=== PATIENT | male | born 1985 | race Caucasian/White ===

== ENCOUNTER 2020-06-25 10:51 | Emergency (ER) | payer BC ==
[2020-06-25] MEDS ORDERED: Sodium Chloride 0.9% 10 ML Syringe FLUSH PRN (11:18)
--- NOTE | 2020-06-25 13:31 | EDM.PDOC ---
ED HPI GENERAL MEDICAL PROBLEM - General Chief Complaint: Respiratory Problem Stated Complaint: [facility] Time Seen by Provider: 06/25/20 11:10 Source of Information: Reports: Patient History Limitations: Reports: No Limitations - History of Present Illness INITIAL COMMENTS - FREE TEXT/NARRATIVE: Patient is a 34-year-old male presenting to the emergency department with complaints of increased shortness of breath, and a feeling of numbness and tingling throughout his entire body. Patient is COVID positive. He states his symptoms initially began on 11 June with loss of taste and smell. He has had some days where he felt fatigued between now and then, however his shortness of breath just developed over the last few days. He received his positive COVID results yesterday as well. He was seen in the COVID clinic 3 days ago and had a chest x-ray completed. He was started on Augmentin and given an albuterol inhaler. His COVID test was also completed that time. He states that today he felt significantly short of breath. His , who is an ER nurse, called EMS. Oxygen saturation per EMS was 84% on room air. On arrival to ER, patient was on 15 L via nonrebreather satting 100%. He denies any significant respiratory or cardiac history. Denies any chest pain, abdominal pain, nausea, vomiting, diarrhea, fever, or chills. - Related Data Allergies Allergy/AdvReac Type Severity Reaction Status Date / Time No Known Allergies Allergy Verified 06/25/20 11:11 Home Meds: Home Meds Albuterol Sulfate [Albuterol Sulfate Hfa] 2 puff INH Q3HR PRN 06/25/20 [History] Amoxicillin/Clavulanate K [Augmentin 875-125 MG] 1 tab PO BID 06/25/20 [History] Past Medical History - Infectious Disease History Infectious Disease History: Reports: Chicken Pox, Novel Coronavirus Social & Family History - Family History Family Medical History: Noncontributory - Tobacco Use Smoking Status *Q: Former Smoker Used Tobacco, but Quit: Yes Month/Year Tobacco Last Used: 2007 - Caffeine Use Caffeine Use: Reports: Coffee, Other Other Caffeine Use: [employer] - Recreational Drug Use Recreational Drug Use: No ED ROS GENERAL - Review of Systems Review Of Systems: See Below Constitutional: Reports: Weakness, Fatigue. Denies: Fever, Chills HEENT: Reports: No Symptoms Respiratory: Reports: Shortness of Breath. Denies: Wheezing, Pleuritic Chest Pain, Cough Cardiovascular: Reports: No Symptoms. Denies: Chest Pain, Syncope Endocrine: Reports: No Symptoms GI/Abdominal: Reports: No Symptoms. Denies: Abdominal Pain, Diarrhea, Nausea, Vomiting : Reports: No Symptoms Musculoskeletal: Reports: No Symptoms Skin: Reports: No Symptoms Neurological: Reports: Dizziness, Numbness (throughout body), Tingling (throughout the body) Psychiatric: Reports: No Symptoms Hematologic/Lymphatic: Reports: No Symptoms Immunologic: Reports: No Symptoms ED EXAM, GENERAL - Physical Exam Exam: See Below General Appearance: Alert, WD/WN, No Apparent Distress Respiratory/Chest: No Respiratory Distress, Lungs Clear, Normal Breath Sounds, No Accessory Muscle Use, Chest Non-Tender Cardiovascular: Normal Peripheral Pulses, Regular Rate, Rhythm, No Edema, No Gallop, No JVD, No Murmur, No Rub Extremities: Normal Inspection, Normal Range of Motion, Non-Tender, Normal Capillary Refill, No Pedal Edema Neurological: Alert, Oriented, CN II-XII Intact, Normal Cognition, Normal Gait, Normal Reflexes, No Motor/Sensory Deficits Psychiatric: Normal Affect, Normal Mood Skin Exam: Warm, Dry, Intact, Normal Color, No Rash EKG INTERPRETATION EKG Date: 06/25/20 Time: 11:42 Rhythm: NSR Rate (Beats/Min): 58 P-Wave: Present QRS: Normal ST-T: Normal QT: Normal Course - Vital Signs Last Recorded V/S: Last Vital Signs Temp 97.5 F 06/25/20 10:59 Pulse 60 06/25/20 10:59 Resp 16 06/25/20 10:59 BP 125/75 06/25/20 10:59 Pulse Ox 100 06/25/20 10:59 - Orders/Labs/Meds Orders: Active Orders 24 hr Category Date Time Status EKG Documentation Completion [RC] STAT Care 06/25/20 11:16 Active Peripheral IV Care [RC] . DIRECTED Care 06/25/20 11:18 Active Chest 1V Frontal [CR] Stat Exams 06/25/20 11:16 Once CULTURE BLOOD [BC] Stat Lab 06/25/20 11:47 Received CULTURE BLOOD [BC] Stat Lab 06/25/20 12:05 Received PROCALCITONIN [REF] Stat Lab 06/25/20 11:47 Received Sodium Chloride 0.9% [Saline Flush] Med 06/25/20 11:18 Active 10 ml FLUSH ASDIRECTED PRN Blood Culture x2 Reflex Set [OM.PC] Stat Ot 06/25/20 11:16 Ordered Peripheral IV Insertion Adult [OM.PC] Stat Ot 06/25/20 11:18 Ordered Medication Orders Sodium Chloride (Saline Flush) 10 ml FLUSH ASDIRECTED PRN PRN Reason: Keep Vein Open Labs: Laboratory Tests 06/25/20 06/25/20 06/25/20 Range/Units 12:05 12:05 12:05 WBC 7.09 (4.23-9.07) K/mm3 RBC 5.95 (4.63-6.08) M/mm3 Hgb 16.6 (13.7-17.5) gm/dl Hct 48.1 (40.1-51.0) % MCV 80.8 (79.0-92.2) fl MCH 27.9 (25.7-32.2) pg MCHC 34.5 (32.2-35.5) g/dl RDW Std Deviation 38.6 (35.1-43.9) fL Plt Count 250 (163-337) K/mm3 MPV 9.2 L (9.4-12.3) fl Neutrophils % (Manual) 84 H (40-60) % Band Neutrophils % 0 (0-10) % Lymphocytes % (Manual) 10 L (20-40) % Atypical Lymphs % 0 % Monocytes % (Manual) 5 (2-10) % Eosinophils % (Manual) 1 (0.8-7.0) % Basophils % (Manual) 0 L (0.2-1.2) Platelet Estimate Adequate RBC Morph Comment Normal PT 11.5 (9.7-11.7) SECONDS INR 1.08 APTT 31 (22-31) SECONDS D-Dimer, Quantitative 0.23 (0.19-0.50) mg/L Sodium (136-145) mEq/L Potassium (3.5-5.1) mEq/L Chloride (98-107) mEq/L Carbon Dioxide (21-32) mEq/L Anion Gap (5-15) BUN (7-18) mg/dL Creatinine (0.7-1.3) mg/dL Est Cr Clr Drug Dosing mL/min Estimated GFR (MDRD) (>60) mL/min BUN/Creatinine Ratio (14-18) Glucose (74-106) mg/dL Lactic Acid (0.4-2.0) mmol/L Calcium (8.5-10.1) mg/dL Magnesium (1.8-2.4) mg/dl Ferritin (26-388) ng/ml Total Bilirubin (0.2-1.0) mg/dL AST (15-37) U/L ALT (16-63) U/L Alkaline Phosphatase (46-116) U/L Lactate Dehydrogenase (85-227) U/L Creatine Kinase (39-308) U/L Troponin I (0.00-0.056) ng/mL C-Reactive Protein 1.1 H* (<1.0) mg/dL NT-Pro-B Natriuret Pep (0-125) pg/mL Total Protein (6.4-8.2) g/dl Albumin (3.4-5.0) g/dl Globulin gm/dL Albumin/Globulin Ratio (1-2) 06/25/20 06/25/20 06/25/20 Range/Units 12:05 12:05 12:05 WBC (4.23-9.07) K/mm3 RBC (4.63-6.08) M/mm3 Hgb (13.7-17.5) gm/dl Hct (40.1-51.0) % MCV (79.0-92.2) fl MCH (25.7-32.2) pg MCHC (32.2-35.5) g/dl RDW Std Deviation (35.1-43.9) fL Plt Count (163-337) K/mm3 MPV (9.4-12.3) fl Neutrophils % (Manual) (40-60) % Band Neutrophils % (0-10) % Lymphocytes % (Manual) (20-40) % Atypical Lymphs % % Monocytes % (Manual) (2-10) % Eosinophils % (Manual) (0.8-7.0) % Basophils % (Manual) (0.2-1.2) Platelet Estimate RBC Morph Comment PT (9.7-11.7) SECONDS INR APTT (22-31) SECONDS D-Dimer, Quantitative (0.19-0.50) mg/L Sodium 140 (136-145) mEq/L Potassium 3.7 (3.5-5.1) mEq/L Chloride 101 (98-107) mEq/L Carbon Dioxide 28 (21-32) mEq/L Anion Gap 14.7 (5-15) BUN 13 (7-18) mg/dL Creatinine 1.2 (0.7-1.3) mg/dL Est Cr Clr Drug Dosing 93.25 mL/min Estimated GFR (MDRD) > 60 (>60) mL/min BUN/Creatinine Ratio 10.8 L (14-18) Glucose 99 (74-106) mg/dL Lactic Acid (0.4-2.0) mmol/L Calcium 9.2 (8.5-10.1) mg/dL Magnesium 2.0 (1.8-2.4) mg/dl Ferritin 954 H (26-388) ng/ml Total Bilirubin 0.6 (0.2-1.0) mg/dL AST 84 H (15-37) U/L ALT 174 H (16-63) U/L Alkaline Phosphatase 61 (46-116) U/L Lactate Dehydrogenase 249 H (85-227) U/L Creatine Kinase 293 (39-308) U/L Troponin I < 0.017 (0.00-0.056) ng/mL C-Reactive Protein (<1.0) mg/dL NT-Pro-B Natriuret Pep 83 (0-125) pg/mL Total Protein 8.0 (6.4-8.2) g/dl Albumin 4.4 (3.4-5.0) g/dl Globulin 3.6 gm/dL Albumin/Globulin Ratio 1.2 (1-2) 06/25/20 Range/Units 12:05 WBC (4.23-9.07) K/mm3 RBC (4.63-6.08) M/mm3 Hgb (13.7-17.5) gm/dl Hct (40.1-51.0) % MCV (79.0-92.2) fl MCH (25.7-32.2) pg MCHC (32.2-35.5) g/dl RDW Std Deviation (35.1-43.9) fL Plt Count (163-337) K/mm3 MPV (9.4-12.3) fl Neutrophils % (Manual) (40-60) % Band Neutrophils % (0-10) % Lymphocytes % (Manual) (20-40) % Atypical Lymphs % % Monocytes % (Manual) (2-10) % Eosinophils % (Manual) (0.8-7.0) % Basophils % (Manual) (0.2-1.2) Platelet Estimate RBC Morph Comment PT (9.7-11.7) SECONDS INR APTT (22-31) SECONDS D-Dimer, Quantitative (0.19-0.50) mg/L Sodium (136-145) mEq/L Potassium (3.5-5.1) mEq/L Chloride (98-107) mEq/L Carbon Dioxide (21-32) mEq/L Anion Gap (5-15) BUN (7-18) mg/dL Creatinine (0.7-1.3) mg/dL Est Cr Clr Drug Dosing mL/min Estimated GFR (MDRD) (>60) mL/min BUN/Creatinine Ratio (14-18) Glucose (74-106) mg/dL Lactic Acid 2.0 (0.4-2.0) mmol/L Calcium (8.5-10.1) mg/dL Magnesium (1.8-2.4) mg/dl Ferritin (26-388) ng/ml Total Bilirubin (0.2-1.0) mg/dL AST (15-37) U/L ALT (16-63) U/L Alkaline Phosphatase (46-116) U/L Lactate Dehydrogenase (85-227) U/L Creatine Kinase (39-308) U/L Troponin I (0.00-0.056) ng/mL C-Reactive Protein (<1.0) mg/dL NT-Pro-B Natriuret Pep (0-125) pg/mL Total Protein (6.4-8.2) g/dl Albumin (3.4-5.0) g/dl Globulin gm/dL Albumin/Globulin Ratio (1-2) Meds: Medications Generic Name Dose Route Start Last Admin Trade Name Freq PRN Reason Stop Dose Admin Sodium Chloride 10 ml 06/25/20 11:18 Saline Flush FLUSH ASDIRECTED PRN Keep Vein Open - Re-Assessments/Exams Free Text/Narrative Re-Assessment/Exam: Patient is a 34-year-old male presenting to the emergency department with complaints of shortness of breath and generalized numbness and tingling throughout his body. He is COVID positive. He presented to the ER on 15 L via nonrebreather satting 100%. Nursing staff had gradually weaned him down to 4 L via nasal cannula cannula still satting 100%. While I was in the room examining him, the supplemental O2 was turned off to establish his baseline oxygenation. Patient was able to maintain 98 to 100% on room air. On exam, his lung sounds are clear. I have ordered a chest x-ray, standard COVID labs, and EKG. 06/25/20 14:42 Hematology was significant for an elevated at 954, AST 84, ALT 174, LDH 249, CRP 1.1. D-dimer and troponin were negative. WBCs are normal. Chest x-ray was normal. EKG showed normal sinus rhythm at 58. Patient has been maintaining oxygen saturation of 98 to 100% on room air. My suspicion is that the patient had a panic attack after feeling short of breath causing him to hyperventilate which is why he felt numbness and tingling throughout his body. I did call and speak with the patient's who is an ER nurse here. Recommend that she purchase a home pulse oximeter so that he may monitor his home oxygenation which may somewhat ease his anxiety. She did state that EMS was having a difficult time getting a reading on their pulse ox. After a time of no reading coming up, 84 popped up momentarily and then disappeared. I question the accuracy of this reading as patient has been maintaining oxygenation very well in the emergency department. Had a long conversation with the patient on what to watch for and return precautions. All of his questions were answered. We will discharge him home with instructions return to ER for any worsening symptoms. Discharge instructions as documented. Departure - Departure Time of Disposition: 14:44 Disposition: Home, Self-Care 01 Condition: Good Clinical Impression: COVID-19 - Discharge Information *PRESCRIPTION DRUG MONITORING PROGRAM REVIEWED*: No *COPY OF PRESCRIPTION DRUG MONITORING REPORT IN PATIENT HEAVEN: No Instructions: COVID-19, COVID-19 Frequently Asked Questions Referrals: PCP,None [Ordering Only Provider] - Forms: ED Department Discharge Additional Instructions: You were seen in the emergency department today for shortness of breath, weakness, and numbness and tingling throughout your body. Your work-up in the ER included lab work, a chest x-ray, and an EKG of your heart. Your chest x-ray was found to be clear. There is no pneumonia. Your EKG was normal. While in the emergency department, you were able to maintain your oxygen saturation at 98 to 100% on room air. The remainder of your vital signs were also normal. Recommend that you go home and rest. You may continue to use your albuterol inhaler if you feel that it is helping, however it may be of limited benefit. I would also recommend that you purchase a home pulse oximeter so that you may monitor your oxygen saturations at home. If you find that you are maintaining an oxygen saturation of less than 92%, or you experience any other worsening symptoms of concern, please do not hesitate to return to the emergency department. Sepsis Event Note (ED) - Evaluation Sepsis Screening Result: No Definite Risk - Focused Exam Vital Signs: Vital Signs Temp Pulse Resp BP Pulse Ox 06/25/20 10:59 97.5 F 60 16 125/75 100 - My Orders Last 24 Hours: My Active Orders 06/25/20 11:16 EKG Documentation Completion [RC] STAT Chest 1V Frontal [CR] Stat Blood Culture x2 Reflex Set [OM.PC] Stat 06/25/20 11:18 Peripheral IV Care [RC] . DIRECTED Sodium Chloride 0.9% [Saline Flush] 10 ml FLUSH ASDIRECTED PRN Peripheral IV Insertion Adult [OM.PC] Stat 06/25/20 11:47 CULTURE BLOOD [BC] Stat PROCALCITONIN [REF] Stat 06/25/20 12:05 CULTURE BLOOD [BC] Stat - Assessment/Plan Last 24 Hours: My Active Orders 06/25/20 11:16 EKG Documentation Completion [RC] STAT Chest 1V Frontal [CR] Stat Blood Culture x2 Reflex Set [OM.PC] Stat 06/25/20 11:18 Peripheral IV Care [RC] . DIRECTED Sodium Chloride 0.9% [Saline Flush] 10 ml FLUSH ASDIRECTED PRN Peripheral IV Insertion Adult [OM.PC] Stat 06/25/20 11:47 CULTURE BLOOD [BC] Stat PROCALCITONIN [REF] Stat 06/25/20 12:05 CULTURE BLOOD [BC] Stat
--- NOTE | 2020-06-26 11:12 | CR ---
Chest: Portable view of the chest was obtained. Comparison: No prior chest imaging is available. Heart size and mediastinum are normal. Lungs are clear with no acute parenchymal change. Old healed fracture deformity is noted within the left clavicle. No acute osseous finding is seen. Impression: 1. Nothing acute is appreciated on portable chest x-ray. Diagnostic code #2 This report was dictated in MDT
== END 2020-06-25 16:22 | disposition home or self-care (01) ==
LOC: JD.ED 10:51
DX: U07.1 COVID-19 (principal); Z87.891 Personal history of nicotine dependence
CPT/HCPCS: 36415; 71045; 71045-26; 80053; 82550; 82728; 83605; 83615; 83735; 83880; 84145; 84484; 85007; 85027; 85379; 85610; 85730; 86140; 87040; 93005; 93010; 99283; 99285-25

== ENCOUNTER 2020-07-14 20:29 | Emergency (ER) | payer BC ==
--- NOTE | 2020-07-14 21:44 | EDM.PDOC ---
ED HPI GENERAL MEDICAL PROBLEM - General Chief Complaint: Cardiovascular Problem Stated Complaint: CHEST TIGHTNESS/HEART RATE GOES UP Time Seen by Provider: 07/14/20 21:08 Source of Information: Reports: Patient, RN Notes Reviewed History Limitations: Reports: No Limitations - History of Present Illness INITIAL COMMENTS - FREE TEXT/NARRATIVE: Patient is a 34-year-old male who presents to the ED for the evaluation of his chest tightness and fluctuations in heart rate. Patient notes he was COVID positive last month, but was cleared to go back to work. he does note that thr oughout his illness, he had ongoing shortness of breath, and feelings of chest tightness, and some "palpitations" where he would feel a thump feeling in his chest and feel flushed right afterwards. He would almost characterize this as a fluttering in his chest. He does have a pulse ox at home, and his is an RN, and they do note that at times his heart rate did dip down into the high 40s and low 50s on the pulse ox with a good pleth. Patient's primary care provider is Dru Pierre, he did have an appoint with him this last Friday, and everything was going well at that time. He returned to work yesterday, and he began to feel the feelings in his chest again. 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 He does complain again of some chest tightness, and feeling of just words hard to catch a deep breath. He states he just does not get the relief from his sigh breaths that he normally does. Patient denies any family history of early cardiac disease. He is not had any fevers or chills, cough/increasing shortness of breath, no nausea no vomiting no diarrhea. - Related Data Allergies Allergy/AdvReac Type Severity Reaction Status Date / Time No Known Allergies Allergy Verified 06/25/20 11:11 Home Meds: Home Meds Albuterol Sulfate [Albuterol Sulfate Hfa] 2 puff INH Q3HR PRN 06/25/20 [History] Amoxicillin/Clavulanate K [Augmentin 875-125 MG] 1 tab PO BID 06/25/20 [History] Past Medical History - Infectious Disease History Infectious Disease History: Reports: Chicken Pox, Novel Coronavirus Social & Family History - Family History Family Medical History: Noncontributory - Caffeine Use Caffeine Use: Reports: Coffee, Other Other Caffeine Use: [employer] ED ROS GENERAL - Review of Systems Review Of Systems: Comprehensive ROS is negative, except as noted in HPI. ED EXAM, GENERAL - Physical Exam Exam: See Below Exam Limited By: No Limitations General Appearance: Alert, WD/WN, No Apparent Distress Respiratory/Chest: No Respiratory Distress, Lungs Clear, Normal Breath Sounds, No Accessory Muscle Use, Chest Non-Tender Cardiovascular: Normal Peripheral Pulses, Regular Rate, Rhythm, No Murmur Peripheral Pulses: 2+: Radial (L), Radial (R) Extremities: Normal Inspection, Normal Capillary Refill Neurological: Alert, Oriented, Normal Cognition, No Motor/Sensory Deficits Psychiatric: Normal Affect, Normal Mood Skin Exam: Warm, Dry, Intact, Normal Color, No Rash Course - Orders/Labs/Meds Orders: Active Orders 24 hr Category Date Time Status Holter Monitor 48 Hours [RC] .PRN Care 07/14/20 22:53 Ordered Labs: Laboratory Tests 07/14/20 07/14/20 Range/Units 22:00 22:00 D-Dimer, Quantitative 0.86 H (0.19-0.50) mg/L Sodium 140 (136-145) mEq/L Potassium 3.4 L (3.5-5.1) mEq/L Chloride 104 (98-107) mEq/L Carbon Dioxide 27 (21-32) mEq/L Anion Gap 12.4 (5-15) BUN 12 (7-18) mg/dL Creatinine 1.1 (0.7-1.3) mg/dL Est Cr Clr Drug Dosing TNP Estimated GFR (MDRD) > 60 (>60) mL/min BUN/Creatinine Ratio 10.9 L (14-18) Glucose 150 H (74-106) mg/dL Calcium 8.7 (8.5-10.1) mg/dL Magnesium 2.4 (1.8-2.4) mg/dl Total Bilirubin 0.4 (0.2-1.0) mg/dL AST 32 (15-37) U/L ALT 75 H (16-63) U/L Alkaline Phosphatase 52 (46-116) U/L Total Protein 7.0 (6.4-8.2) g/dl Albumin 3.9 (3.4-5.0) g/dl Globulin 3.1 gm/dL Albumin/Globulin Ratio 1.3 (1-2) TSH 3rd Generation 2.445 (0.358-3.74) uIU/mL - Re-Assessments/Exams Free Text/Narrative Re-Assessment/Exam: 07/14/20 21:42 Patient presents to the ED for the evaluation of his ongoing respiratory/cardiac issues. Have ordered repeat labs to include electrolytes, TSH level along with a d-dimer. I do believe these very well could be palpitations due to anxiety nonetheless if labs are unremarkable, plan is to send the patient home with a 48-hour Holter monitor. 07/14/20 23:00 Laboratory evaluation demonstrates a mildly elevated d-dimer at 0.86, metabolic panel is essentially unremarkable, potassium mildly low at 3.4. Patient states that he was watching his heart rate on the monitor in the ED ER, and he describes what sounds like a PVC on the monitor, I did explain to him that this is a normal abnormal finding, he seemed to be reassured by this. Nonetheless we will send him home with a Holter monitor and have him follow-up with Dr. Pierre at this time. Regarding the elevated d-dimer, his O2 sats are 100% on room air, and his heart rate is 60 to 70 bpm, and I very much do not suspect a pulmonary embolus at this time. Again he was COVID positive less than 1 month ago. Departure - Departure Time of Disposition: 23:01 Disposition: Home, Self-Care 01 Condition: Good Clinical Impression: Palpitations with regular cardiac rhythm Instructions: Palpitations, [id number] Referrals: Dru Stephens MD [Primary Care Provider] - Forms: ED Department Discharge Additional Instructions: You were evaluated in the ER today for your chest tightness/heart palpitations. Laboratory evaluation was done, demonstrates no focal metabolic abnormalities. Your d-dimer was mildly elevated at 0.86, but you did recently just suffer from COVID-19, and fluctuations in the d-dimer can happen due to the disease process. There is a very low suspicion for pulmonary embolus at this visit. You were sent home with a Holter monitor, to monitor your heart rate for the next 48 hours, you will need to return this to our facility after the 48 hours is done, and schedule an appoint with Dr. Pierre, roughly 1 week after you have returned the device, for follow-up and further management. Please continue to try to use De-stressing/coping mechanisms at home, as there can be a possibility of some of this being anxiety. If your Holter monitor demonstrates no focal abnormalities, please talk with your provider about managing your anxiety / stress. Please return to the ER at any time if symptoms change or worsen. - My Orders Last 24 Hours: My Active Orders 07/14/20 22:53 Holter Monitor 48 Hours [RC] .PRN - Assessment/Plan Last 24 Hours: My Active Orders 07/14/20 22:53 Holter Monitor 48 Hours [RC] .PRN
== END 2020-07-14 23:49 | disposition home or self-care (01) ==
LOC: JD.ED 20:29
DX: R00.2 Palpitations (principal); R79.1 Abnormal coagulation profile; Z86.19 Personal history of other infectious and parasitic diseases
CPT/HCPCS: 36415; 80053; 83735; 84443; 85379; 93225; 93226; 99283; 99284

== ENCOUNTER 2020-09-18 10:55 | Emergency (ER) | payer BC ==
--- NOTE | 2020-09-18 12:15 | EDM.PDOC ---
ED HPI GENERAL MEDICAL PROBLEM - General Chief Complaint: General Stated Complaint: SOB /SHAKEY Time Seen by Provider: 09/18/20 11:48 Source of Information: Reports: Patient, Old Records, RN Notes Reviewed History Limitations: Reports: No Limitations - History of Present Illness INITIAL COMMENTS - FREE TEXT/NARRATIVE: Patient is a 35-year-old male who presents to the ED for evaluation of his ongoing chest pressure, shakiness and shortness of breath. He had a COVID-19 in May 2020. He notes that he believes he still having lingering side effects. He still does not have his entire sense of taste and smell, he feels like he is just a zombie of a human. He feels like he has no emotion. He was evaluated in this ER for chest pressure a month and a half or so ago, when was believed to have some anxiety issues causing this. He was placed on metoprolol and hydroxyzine, and everything is been going okay but today he has noticed some increased general symptoms, that are periodic today to include shakiness, shortness of breath, and a anxious type feeling. He notes no increased stress at home or at work. He states these just come up out of the blue. He feels like something is just not right. He is also complaining of quite a bit of frontal sinus pressure and he notes this has been present since he has had COVID-19 as well. His primary care is Dr. Dru Pierre, and he does have an appointment with him on September 28. Patient denies any other sick-like symptoms, fever/chills, cough/shortness of breath, nausea/vomiting/diarrhea. - Related Data Allergies Allergy/AdvReac Type Severity Reaction Status Date / Time No Known Allergies Allergy Verified 09/18/20 11:13 Home Meds: Home Meds Escitalopram [Lexapro] 20 mg PO DAILY #30 tab 09/18/20 [Rx] Past Medical History Respiratory History: Reports: Other (See Below) Other Respiratory History: COVID Psychiatric History: Reports: Anxiety - Infectious Disease History Infectious Disease History: Reports: Chicken Pox, Novel Coronavirus (May 2020) Social & Family History - Family History Family Medical History: No Pertinent Family History - Caffeine Use Caffeine Use: Reports: Coffee, Soda Other Caffeine Use: [place] [employer] - Recreational Drug Use Recreational Drug Use: No ED ROS GENERAL - Review of Systems Review Of Systems: Comprehensive ROS is negative, except as noted in HPI. ED EXAM, GENERAL - Physical Exam Exam: See Below Exam Limited By: No Limitations General Appearance: Alert, WD/WN, No Apparent Distress Eye Exam: Bilateral Eye: EOMI, Normal Inspection, PERRL Ears: Normal External Exam, Normal Canal, Hearing Grossly Normal, Normal TMs Throat/Mouth: Normal Inspection, Normal Lips, Normal Teeth, Normal Gums, Normal Oropharynx, Normal Voice, No Airway Compromise Head: Atraumatic, Normocephalic Neck: Normal Inspection Respiratory/Chest: No Respiratory Distress, Lungs Clear, Normal Breath Sounds, No Accessory Muscle Use, Chest Non-Tender Cardiovascular: Normal Peripheral Pulses, Regular Rate, Rhythm, No Murmur Peripheral Pulses: 2+: Radial (L), Radial (R) Extremities: Normal Inspection, Normal Capillary Refill Neurological: Alert, Oriented, Normal Cognition, No Motor/Sensory Deficits Psychiatric: Normal Affect, Normal Mood (pt seems somewhat frustrated with these feelings, but realizes that this may all be d/t anxiety.) Skin Exam: Warm, Dry, Intact, Normal Color, No Rash #1 Interpretation EKG Date: 09/18/20 Time: 12:29 Rhythm: NSR Rate (Beats/Min): 56 [place]: Normal P-Wave: Present QRS: Normal ST-T: Normal QT: Normal EKG Interpretation Comments: No obvious ischemia or acute ST changes noted, reviewed by myself and Dr. Armstrong. Course - Vital Signs Last Recorded V/S: Last Vital Signs Temp 97.6 F 09/18/20 11:07 Pulse 55 L 09/18/20 11:07 Resp 17 09/18/20 11:07 BP 133/76 09/18/20 11:07 Pulse Ox 98 09/18/20 11:07 - Orders/Labs/Meds Labs: Laboratory Tests 09/18/20 09/18/20 Range/Units 12:30 12:30 WBC 11.86 H (4.23-9.07) K/mm3 RBC 5.35 (4.63-6.08) M/mm3 Hgb 15.5 (13.7-17.5) gm/dl Hct 44.3 (40.1-51.0) % MCV 82.8 (79.0-92.2) fl MCH 29.0 (25.7-32.2) pg MCHC 35.0 (32.2-35.5) g/dl RDW Std Deviation 38.7 (35.1-43.9) fL Plt Count 258 (163-337) K/mm3 MPV 9.3 L (9.4-12.3) fl Neut % (Auto) 82.5 H (34.0-67.9) % Lymph % (Auto) 12.1 L (21.8-53.1) % [place] % (Auto) 4.7 L (5.3-12.2) % Eos % (Auto) 0.4 L (0.8-7.0) Baso % (Auto) 0.3 (0.1-1.2) % Neut # (Auto) 9.79 H (1.78-5.38) K/mm3 Lymph # (Auto) 1.43 (1.32-3.57) K/mm3 [place] # (Auto) 0.56 (0.30-0.82) K/mm3 Eos # (Auto) 0.05 (0.04-0.54) K/mm3 Baso # (Auto) 0.03 (0.01-0.08) K/mm3 Manual Slide Review Normal smear Sodium 138 (136-145) mEq/L Potassium 3.8 (3.5-5.1) mEq/L Chloride 102 (98-107) mEq/L Carbon Dioxide 26 (21-32) mEq/L Anion Gap 13.8 (5-15) BUN 15 (7-18) mg/dL Creatinine 1.1 (0.7-1.3) mg/dL Est Cr Clr Drug Dosing 97.70 mL/min Estimated GFR (MDRD) > 60 (>60) mL/min BUN/Creatinine Ratio 13.6 L (14-18) Glucose 106 (74-106) mg/dL Calcium 8.9 (8.5-10.1) mg/dL Magnesium 2.0 (1.8-2.4) mg/dl Total Bilirubin 0.5 (0.2-1.0) mg/dL AST 31 (15-37) U/L ALT 53 (16-63) U/L Alkaline Phosphatase 53 (46-116) U/L Troponin I < 0.017 (0.00-0.056) ng/mL Total Protein 7.1 (6.4-8.2) g/dl Albumin 4.2 (3.4-5.0) g/dl Globulin 2.9 gm/dL Albumin/Globulin Ratio 1.5 (1-2) - Re-Assessments/Exams Free Text/Narrative Re-Assessment/Exam: 09/18/20 12:14 Patient presents to the ED for his generalized symptoms. I do believe he is suffering from a component of anxiety, but since he has had frontal sinus pressure since his COVID-19 infection and he has not had this checked out, we will get a head CT to see about chronic sinusitis changes. We will likely start the patient on Lexapro 20 mg, I did do some informed decision-making, the patient seems fairly okay with this as he does not believe that the metoprolol and hydroxyzine is doing what it needs to do for him. 09/18/20 12:[address] is negative for any injury cranial acute abnormality. Sinuses were visualized and were unremarkable, there are no fluid levels or chronic sinusitis type changes. 09/18/20 13:35 Labs are unremarkable. We will get him discharged home with a prescription of Lexapro to start, and have him follow-up with his regular care provider on the as directed. Departure - Departure Time of Disposition: 13:49 Disposition: Home, Self-Care 01 Condition: Good Clinical Impression: Sinus pressure, Anxiety - Discharge Information *PRESCRIPTION DRUG MONITORING PROGRAM REVIEWED*: No *COPY OF PRESCRIPTION DRUG MONITORING REPORT IN PATIENT HEAVEN: No Prescriptions: Escitalopram [Lexapro] 20 mg PO DAILY #30 tab Instructions: Managing Anxiety, Adult Referrals: Dru Stephens MD [Primary Care Provider] - Forms: ED Department Discharge Additional Instructions: You were evaluated in the ER today for your ongoing chest pressure, head pressure, and generalized feelings of anxiety. Although you noted no real triggers that would have made your anxiety worse. It is likely that most your symptoms are due to unprovoked anxiety. You are already taking metoprolol and hydroxyzine. You have been started on Lexapro 20 mg daily. Please note that this medication can take a few weeks to start seeing benefit. Your head CT was negative for any chronic sinusitis findings. It is unclear what is causing the feelings of head pressure at today's visit. Please continue to take your metoprolol and hydroxyzine for anxiety management as well, you will need to consult with your regular care provider to see if he would like you to stop these medications. Stop taking the 5-HTP, as this could increase your serotonin levels and potentially cause serotonin syndrome. Please return to the ER at any time if symptoms change or worsen. Sepsis Event Note (ED) - Evaluation Sepsis Screening Result: No Definite Risk - Focused Exam Vital Signs: Vital Signs Temp Pulse Resp BP Pulse Ox 09/18/20 11:07 97.6 F 55 L 17 133/76 98
--- NOTE | 2020-09-18 14:28 | CT ---
PROCEDURE INFORMATION: Exam: CT Head Without Contrast Exam date and time: 09/18/2020 12:31 PM Age: 35 years old Clinical indication: Other: Frontal sinus pressure TECHNIQUE: Imaging protocol: Computed tomography of the head without contrast. COMPARISON: No relevant prior studies available. FINDINGS: Brain: Normal. No hemorrhage. Unremarkable white matter. No mass effect. Cerebral ventricles: No ventriculomegaly. Bones/joints: Unremarkable. No acute fracture. Paranasal sinuses: Visualized sinuses are unremarkable. No fluid levels. Mastoid air cells: Visualized mastoid air cells are well aerated. Soft tissues: Unremarkable. IMPRESSION: No acute intracranial abnormality. Thank you for allowing us to participate in the care of your patient. Dictated and Authenticated by: Yair Croft MD 09/18/2020 1:44 PM Central Time ([place] & [place]) [facility]
== END 2020-09-18 14:07 | disposition home or self-care (01) ==
LOC: JD.ED 10:55
DX: F41.9 Anxiety disorder, unspecified (principal); R09.89 Other specified symptoms and signs involving the circulatory and respiratory systems; Z79.899 Other long term (current) drug therapy
CPT/HCPCS: 36415; 70450; 70450-26; 80053; 83735; 84484; 85025; 93005; 93010; 99283; 99285-25

== ENCOUNTER 2024-11-04 11:02 | Emergency (ER) | payer BC ==
[2024-11-04 11:57] LABS: BASOPHILS PERCENT AUTO 0.3 % (0.0-1.0); EOSINOPHILS PERCENT AUTO 0.3 % (0.0-6.0); HEMOGLOBIN 15.8 gm/dl (14.0-18.0); IMMATURE GRAN ABSOLUTE AUTO 0.02 K/mm3 (0.00-0.05); IMMATURE GRAN PERCENT AUTO 0.2 % (0.0-0.4); LYMPHOCYTES ABSOLUTE AUTO 0.8 K/mm3 (1.0-4.8); MEAN CORPUSCULAR HEMOGLOBIN 28.3 pg (28.0-32.0); MEAN CORPUSCULAR HGB CONC 34.3 g/dl (32.0-36.0); MEAN CORPUSCULAR VOLUME 82.3 fl (83.0-99.0); MEAN PLATELET VOLUME 9.2 fl (9.4-12.4); MONOCYTES ABSOLUTE AUTO 0.5 K/mm3 (0.0-0.8); MONOCYTES PERCENT AUTO 4.9 % (0.0-8.0); NEUTROPHILS ABSOLUTE AUTO 9.7 K/mm3 (1.8-7.7); NEUTROPHILS PERCENT AUTO 87.3 % (41.0-71.0); PLATELET COUNT,PLT 263 K/mm3 (150-400); RED BLOOD CELL COUNT 5.59 M/mm3 (4.52-5.90); WHITE BLOOD CELL COUNT,WBC 11.09 K/mm3 (3.9-11.3)
[2024-11-04] MEDS: LORazepam 2 MG/ML SDV IVPUSH ONE (12:22)
[2024-11-04 13:10] LABS: INR 1.12; PROTHROMBIN TIME 11.8 SECONDS (9.7-12.0)
[2024-11-04 13:12] LABS: PTT,PARTIAL THROMBOPLSTIN TIME 26.5 SECONDS (21.7-31.4)
[2024-11-04 13:16] LABS: D-DIMER QUANTITATIVE < 0.19 mg/L (0.19-0.50)
[2024-11-04 13:24] LABS: A/G RATIO 1.5 (1-2); ALBUMIN 4.2 g/dl (3.4-5.0); ANION GAP 13.6 (5-15); BILIRUBIN TOTAL 0.6 mg/dL (0.2-1.0); BUN/CREATININE RATIO 12.9 (14-18); CALCIUM 8.9 mg/dL (8.5-10.1); CREATININE 1.4 mg/dL (0.7-1.3); EST CRCL DRUG DOSING (CG) 76.2 mL/min; POTASSIUM,K 3.6 mEq/L (3.5-5.1)
[2024-11-04] MEDS: Sodium Chloride 0.9% 1,000 ML IV SCH (15:24)
== END 2024-11-04 16:11 | disposition home or self-care (01) ==
LOC: JD.ED 11:02
DX: R07.89 Other chest pain (principal); F41.9 Anxiety disorder, unspecified; Z86.16 Personal history of COVID-19; Z79.899 Other long term (current) drug therapy
CPT/HCPCS: 36415; 71045; 80053; 83735; 83880; 84484; 85025; 85379; 85610; 85730; 93005; 96374; 99285; J2060; J7030; 93010; 99284